=== PATIENT | male | born 1985 | race Caucasian/White ===

== ENCOUNTER 2018-12-15 11:07 | Emergency (ER) | payer MEDICAID ==
[~2018-12-15] VITALS: Ht 167.6 cm; Wt 82.1 kg
[2018-12-15 11:10] VITALS: BP 150/87; PULSE 79; RESP 20; Ht 167.6 cm; Wt 82.1 kg
[2018-12-15] MEDS ORDERED: KETOROLAC 60 MG INJ IM STA (12:03)
[2018-12-15] MEDS ORDERED: IBUP800T48 PO (12:06)
[2018-12-15] MEDS ORDERED: CYCL10TA7 PO (12:06)
[2018-12-15] MEDS ORDERED: TRAM50TA2 PO (12:06)
--- NOTE | 2018-12-15 12:09 | ERD ---
ER Documentation Chief Complaint Chief Complaint Complains of abdominal pain x 3 days HPI 33-year-old male is here with back pain. He states he has a history of back pain secondary to disc problems. No injury or trauma. No bowel or bladder incontinence. No numbness or tingling. No urinary symptoms. No fever. Ambulatory. ROS All systems reviewed and are negative except as per history of present illness. Medications Home Meds Active Scripts Tramadol HCl (Tramadol HCl) 50 Mg Tablet, 50 MG PO Q4 PRN for PAIN, #20 TAB Prov:CIARA DONIS PA-C 12/15/18 Ibuprofen* (Motrin*) 800 Mg Tab, 800 MG PO Q6H PRN for PAIN AND OR ELEVATED TEMP, #30 TAB Prov:CIARA DONIS PA-C 12/15/18 Cyclobenzaprine Hcl* (Cyclobenzaprine Hcl*) 10 Mg Tablet, 10 MG PO BID, #15 TAB Prov:CIARA DONIS PA-C 12/15/18 Allergies Allergies: Coded Allergies: No Known Allergy (Unverified , 12/15/18) PMhx/Soc Medical and Surgical Hx: pt denies Medical Hx, pt denies Surgical Hx Hx Alcohol Use: No Hx Substance Use: No Hx Tobacco Use: No Smoking Status: Never smoker FmHx Family History: No diabetes Physical Exam Vitals Physical Exam Const: No acute distress Head: Atraumatic Eyes: Normal Conjunctiva ENT: Normal External Ears, Nose and Mouth. Neck: Full range of motion. No meningismus. Resp: Clear to auscultation bilaterally Cardio: Regular rate and rhythm, no murmurs Back Exam: Compartments: Soft Motor: Normal flexion and extension of bilateral hip/knee/ankle/foot Sensation: Intact to light touch throughout Bones: No midline TTP Results 24 hrs Current Medications Medications Dose Sig/Letty Start Time Status Last (Trade) Ordered Route PRN Stop Time Admin Dose Reason Admin Ketorolac 60 mg ONCE STAT 12/15/18 DC 12/15/18 Tromethamine IM 12:03 12:13 (Toradol) 12/15/18 12:04 Procedures/MDM This 33-year-old is here with back pain. The differential diagnosis includes but is not limited to muscle strain, ligament strain, contusion, arthritis, discogenetic disease, non-musculoskeletal, cauda equina syndrome, cord compression, abscess and others. Toradol injection given. Discharged with ibuprofen Flexeril and tramadol. Patient counseled regarding my diagnostic impression and care plan. Prior to discharge all questions answered. Pt agrees with treatment plan and understands strict return precautions. Pt is instructed to follow up with primary care provider within 24-48 hours. Precautionary instructions provided including instructions to return to the ER if not improving or for any worsening or changing symptoms or concerns. Departure Diagnosis: Primary Impression: Back pain Condition: Stable Patient Instructions: Back Pain (Acute Or Chronic) Additional Instructions: Call your primary care doctor TOMORROW for an appointment during the next 1-2 days.See the doctor sooner or return here if your condition worsens before your appointment time. CIARA DONIS PA-C Dec 15, 2018 12:09
== END 2018-12-15 13:01 | disposition home or self-care (01) ==
LOC: FTE 11:07
DX: M54.9 Dorsalgia, unspecified (principal)
CPT/HCPCS: 96372; J1885